=== PATIENT | male | born 1960 | race Caucasian/White ===

== ENCOUNTER 2019-08-28 16:53 | Emergency (ER) | payer BC ==
[~2019-08-28] VITALS: Ht 180.3 cm; Wt 101.0 kg
[2019-08-28 17:01] VITALS: BP 151/100
--- NOTE | 2019-08-28 17:29 | NUR ---
2 IR NURSES AT BEDSIDE TO CLEAN AND DRESS PORT.
[2019-08-28] MEDS ORDERED: acetaminophen 325mg tablet PO ONE (18:40)
[2019-08-28] MEDS ORDERED: tetanus & diphtheria toxoid (Td) vaccine 0.5ml IMVAC ONE (18:40)
[2019-08-28] MEDS ORDERED: TETanus/Pertussis (Acell)/Diphther VAC/PF (Tdap-Adult) 0.5ml syringe IMVAC ONE (18:50)
== END 2019-08-28 19:09 | disposition home or self-care (01) ==
LOC: ER 16:53
DX: S61.217A Laceration without foreign body of left little finger without damage to nail, initial encounter (principal); W26.8XXA Contact with other sharp object(s), not elsewhere classified, initial encounter; Y93.89 Activity, other specified; Y92.89 Other specified places as the place of occurrence of the external cause; Y99.8 Other external cause status
CPT/HCPCS: 12001; 90471; 99283